=== PATIENT | male | born 1965 | race Native Hawaiian/Other Pacific Islander ===

== ENCOUNTER 2017-12-25 14:29 | Outpatient (CLI) | payer OTHER | END 2017-12-25 21:18 | disposition home or self-care (01) | LOC: LABW 14:29 | DX: F41.8 Other specified anxiety disorders (principal); E78.9 Disorder of lipoprotein metabolism, unspecified; E11.9 Type 2 diabetes mellitus without complications; M13.88 Other specified arthritis, other site | CPT/HCPCS: 81000 ==